=== PATIENT | female | born 2000 | race Caucasian/White ===

== ENCOUNTER 2021-02-15 11:44 | Emergency (ER) | payer OTHER, BC ==
[~2021-02-15] VITALS: Ht 170.2 cm; Wt 59.1 kg
[2021-02-15 12:05] VITALS: TEMP 98.6
[2021-02-15 13:50] VITALS: BP 118/70; PULSE 90
== END 2021-02-15 13:50 | disposition home or self-care (01) ==
LOC: COL.ER 11:44
DX: S52.501A Unspecified fracture of the lower end of right radius, initial encounter for closed fracture (principal); S80.212A Abrasion, left knee, initial encounter; S80.211A Abrasion, right knee, initial encounter; S00.511A Abrasion of lip, initial encounter; K03.81 Cracked tooth; V86.99XA Unspecified occupant of other special all-terrain or other off-road motor vehicle injured in nontraffic accident, initial encounter